=== PATIENT | male | born 1975 | race Caucasian/White ===

== ENCOUNTER 2020-04-22 00:48 | Emergency (ER) | payer BC ==
[~2020-04-22] VITALS: Ht 182.9 cm; Wt 109.0 kg
[2020-04-22] MEDS ORDERED: PENICILLIN G BENZATHINE 2,400,000 UNITS/4ML SYR IM ONE (01:30)
[2020-04-22 01:34] LABS: BASOPHILS % 0.5 % (0.0-2.0); HEMATOCRIT. 44.5 % (42.0-52.0); HEMOGLOBIN. 15.1 g/dL (14.0-18.0); LYMPHOCYTES % 42.9 % (20.0-50.0); MEAN CORPUSCULAR HEMOGLOBIN 29.7 pg (28.0-32.0); MEAN CORPUSCULAR VOLUME 87.8 fL (80.0-94.0); MEAN PLATELET VOLUME 9.2 fl (7.4-10.4); MONOCYTES % 5.4 % (2.0-8.0); NEUTROPHILS % 50.2 % (40.0-76.0); PLATELET 215 x1000/uL (130-400); RED BLOOD CELL COUNT 5.07 mill/uL (4.7-6.1); RED CELL DISTRIBUTION WIDTH 13.7 % (11.6-14.6)
[2020-04-22 01:40] LABS: CHLORIDE 109 mEq/L (98-107)
[2020-04-22] MEDS ORDERED: LISINOPRIL 10MG TABLET PO ONE (01:45)
[2020-04-22] MEDS ORDERED: LISI10TA5 MT (02:00)
[2020-04-22 02:13] VITALS: BP 135/77
== END 2020-04-22 02:30 | disposition home or self-care (01) ==
LOC: ER 00:48
DX: F41.8 Other specified anxiety disorders (principal); F43.0 Acute stress reaction; R07.89 Other chest pain; A53.9 Syphilis, unspecified; I10 Essential (primary) hypertension
CPT/HCPCS: 36415; 80053; 83880; 84484; 85025; 93005; 96372; 99284; J0561